=== PATIENT | female | born 1975 | race Two or more races ===

== ENCOUNTER 2023-01-25 06:32 | Day surgery (SDC) | payer OTHER ==
[~2023-01-25] VITALS: Ht 165.1 cm; Wt 59.0 kg
[~2023-01-25 06:32] MED LIST: SYNTHROID100 MCG PO
== END 2023-01-25 21:20 | disposition home or self-care (01) ==
LOC: CIR.AMB 06:32
PROVIDERS: ATTEND Surgery
DX: D05.11 Intraductal carcinoma in situ of right breast (principal); R92.1 Mammographic calcification found on diagnostic imaging of breast; N60.91 Unspecified benign mammary dysplasia of right breast; D24.2 Benign neoplasm of left breast; N60.02 Solitary cyst of left breast; N60.22 Fibroadenosis of left breast; R59.0 Localized enlarged lymph nodes; I10 Essential (primary) hypertension; Z20.822 Contact with and (suspected) exposure to COVID-19
CPT/HCPCS: 19301; 38525; 38792; 19281; 19282; A9541; L8699